=== PATIENT | female | born 1960 | race Hispanic/Latino ===

== ENCOUNTER 2021-10-27 13:47 | Outpatient (CLI) | payer OTHER | END 2021-10-27 13:48 | disposition home or self-care (01) | LOC: CSHULT 13:47 | PROVIDERS: ATTEND Urology | DX: N28.1 Cyst of kidney, acquired (principal); R31.29 Other microscopic hematuria; N20.0 Calculus of kidney | CPT/HCPCS: 74018; 76770 ==

== ENCOUNTER 2025-01-12 07:29 | Outpatient (CLI) | payer OTHER | END 2025-01-12 07:30 | disposition home or self-care (01) | LOC: CSHCT 07:29 | PROVIDERS: ATTEND Student in an Organized Health Care Education/Training Program | DX: R10.9 Unspecified abdominal pain (principal); R31.0 Gross hematuria; K74.60 Unspecified cirrhosis of liver | CPT/HCPCS: 74176 ==

== ENCOUNTER 2025-08-21 07:44 | Outpatient (CLI) | payer OTHER | END 2025-08-21 07:45 | disposition home or self-care (01) | LOC: CSHULT 07:44 | PROVIDERS: ATTEND Internal Medicine | DX: K76.9 Liver disease, unspecified (principal); K74.60 Unspecified cirrhosis of liver; K75.81 Nonalcoholic steatohepatitis (NASH); E01.0 Iodine-deficiency related diffuse (endemic) goiter | CPT/HCPCS: 76700 ==